=== PATIENT | female | born 1985 | race Caucasian/White ===

== ENCOUNTER 2021-03-09 23:14 | Emergency (ER) | payer OTHER ==
[~2021-03-09] VITALS: Ht 162.6 cm; Wt 83.6 kg
[2021-03-09 23:58] LABS: BASOPHILS % (AUTO) 0.2 % (0.0-2.0); EOSINOPHILS % (AUTO) 1.1 % (1.0-6.0); HEMATOCRIT 35.9 % (36-46); HEMOGLOBIN 11.8 g/dL (12.0-16.0); LYMPHOCYTES # (AUTO) 1.4 K/uL (1.0-4.8); LYMPHOCYTES % (AUTO) 11.6 % (22.0-44.0); MEAN CORPUSCULAR HEMOGLOBIN 28.2 pg (26.0-34.0); MEAN CORPUSCULAR HGB CONC 32.9 G/dL (31.0-37.0); MEAN CORPUSCULAR VOLUME 86 fL (80-100); MONOCYTES # (AUTO) 0.8 K/uL (0.1-1.0); MONOCYTES % (AUTO) 6.5 % (2.0-9.0); NEUTROPHILS # (AUTO) 9.9 K/uL (1.8-7.7); NEUTROPHILS % (AUTO) 80.6 % (40.0-70.0); PLATELET COUNT (AUTO) 345 K/uL (150-450); RED BLOOD CELL COUNT(AUTO) 4.19 MIL/uL (4.00-5.20); RED CELL DISTRIBUTION WIDTH 15.9 % (11.5-14.5)
[2021-03-10 00:07] LABS: SALICYLATE < 2.8 mg/dL (2.8-20.0)
[2021-03-10 00:29] LABS: ALKALINE PHOSPHATASE 75 U/L (46-116); POTASSIUM 3.1 mmol/L (3.5-5.1); SODIUM SERUM 136 mmol/L (136-145)
[2021-03-10 00:31] LABS: CHLORIDE 99 mmol/L (98-107)
[2021-03-10 00:32] LABS: ALANINE AMINOTRANSFERASE 23 U/L (12-78); ASPARTATE AMINOTRANSFERASE 24 U/L (15-37); BILIRUBIN,TOTAL 0.5 mg/dL (0.1-1.0); CALCIUM, TOTAL 8.1 mg/dL (8.8-10.5); CREATININE 1.06 mg/dL (0.60-1.30); GLOMERULAR FILTR. RATE CALC 60 mL/min (>60); GLUCOSE,RANDOM 106 mg/dL (70-110); TOTAL PROTEIN, SERUM 6.6 g/dL (6.4-8.2); UREA NITROGEN, BLOOD 12 mg/dL (7-18)
[2021-03-10 00:33] LABS: ACETAMINOPHEN < 2 mcg/mL (10-30); ALBUMIN 3.4 g/dL (3.4-5.0)
[2021-03-10 00:34] LABS: ANION GAP 12 mmol/L (8-16); CARBON DIOXIDE 25 mmol/L (22-29)
[2021-03-10] MEDS ORDERED: POTASSIUM CHLORIDE 20 MEQ ER TABLET PO ONE (01:30)
[2021-03-10 10:09] VITALS: BP 126/77
== END 2021-03-10 10:10 | disposition home or self-care (01) ==
LOC: EMS 23:14
DX: T40.3X1A Poisoning by methadone, accidental (unintentional), initial encounter (principal); I50.9 Heart failure, unspecified; Y92.89 Other specified places as the place of occurrence of the external cause
CPT/HCPCS: 80053; 82962; 85025; 99285; G0480; 82948; G0481